=== PATIENT | female | born 1990 | race Caucasian/White ===

== ENCOUNTER 2017-10-14 10:16 | Inpatient (IN) | payer OTHER ==
[2017-10-14] MEDS: BETAMET NA PHOS/AC(6 MG/ML) 5ML INJ IM (13:13)
[2017-10-14 13:42] LABS: ADD MAN DIFF? NO
[2017-10-14 13:44] LABS: BASOPHILS % 0.4 % (0.0-2.0); EOSINOPHILS # 0.3 10^3/ul (0.0-0.5); EOSINOPHILS % 2.9 % (0.0-7.0); HEMATOCRIT 33.1 % (37.0-47.0); HEMOGLOBIN 11.5 g/dl (12.0-16.0); LYMPHOCYTES % 20.8 % (15.0-51.0); MEAN CORPUSCULAR HEMOGLOBIN 32.3 pg (29.0-33.0); MEAN CORPUSCULAR HGB CONC 34.7 g/dl (32.0-37.0); MONOCYTE # 0.8 10^3/ul (0.3-0.9); MONOCYTES % 7.9 % (0.0-11.0); NEUTROPHIL # 6.5 10^3/ul (1.6-7.5); NEUTROPHILS % 67.4 % (39.0-77.0); PLATELET COUNT 160 10^3/UL (140-415); RED BLOOD COUNT 3.56 10^6/ul (4.20-5.40)
[2017-10-14 13:44] LABS: WHITE BLOOD COUNT 9.6 10^3/ul (4.8-10.8)
[2017-10-14] MEDS ORDERED: NACL 0.9% 3 ML SYG IV (15:30)
== END 2017-10-14 19:45 | disposition home or self-care (01) | DRG 780 ==
LOC: OBT 10:16 → L-D 10:17 → OBT 15:39 → L-D 15:39 → PP1 15:50
PROVIDERS: Obstetrics & Gynecology
DX: O47.02 False labor before 37 completed weeks of gestation, second trimester (principal); Z3A.26 26 weeks gestation of pregnancy
CPT/HCPCS: 36415; 76815; 76817; 82731; 85025; 85460; 86850; 86900; 86901

== ENCOUNTER 2017-10-15 13:13 | Outpatient (CLI) | payer OTHER ==
[2017-10-15] MEDS: BETAMET NA PHOS/AC(6 MG/ML) 5ML INJ IM (13:49)
== END 2017-10-15 14:29 | disposition home or self-care (01) ==
LOC: OBT 13:13 → L-D 13:14 → OBT 14:29
DX: O26.892 Other specified pregnancy related conditions, second trimester (principal); Z3A.26 26 weeks gestation of pregnancy
CPT/HCPCS: 96372

== ENCOUNTER 2018-01-20 13:41 | Outpatient (CLI) | payer OTHER ==
[2018-01-20] MEDS ORDERED: CARBOPROST 250 MCG INJ IM (16:00)
[2018-01-20] MEDS ORDERED: MISOPROSTOL 200 MCG TAB PR (16:00)
[2018-01-20] MEDS ORDERED: BUTORPHANOL 1 MG INJ IV (16:00)
[2018-01-20] MEDS ORDERED: LACTATED RINGER'S 1,000 ML IV* (16:00)
[2018-01-20] MEDS ORDERED: BUTORPHANOL 2 MG INJ IV (16:00)
[2018-01-20] MEDS ORDERED: OXYTOCIN 30 UNITS/LR 500 ML IV ×2 (16:00)
[2018-01-20] MEDS ORDERED: LIDOCAINE 1% (MPF) 30 ML INJ INJ (16:00)
[2018-01-20] MEDS ORDERED: METHYLERGONOVINE 0.2 MG INJ IM (16:00)
== END 2018-01-20 16:10 | disposition home or self-care (01) ==
LOC: OBT 13:41 → L-D 13:41 → OBT 16:10
DX: O48.0 Post-term pregnancy (principal); Z3A.40 40 weeks gestation of pregnancy
CPT/HCPCS: 76815; 76818

== ENCOUNTER 2018-01-21 09:29 | Inpatient (IN) | payer OTHER ==
[2018-01-21] MEDS ORDERED: METHYLERGONOVINE 0.2 MG INJ IM (10:00)
[2018-01-21] MEDS ORDERED: OXYTOCIN 30 UNITS/LR 500 ML IV (10:00)
[2018-01-21] MEDS ORDERED: MISOPROSTOL 200 MCG TAB PR (10:00)
[2018-01-21] MEDS ORDERED: CARBOPROST 250 MCG INJ IM (10:00)
[2018-01-21] MEDS ORDERED: IBUPROFEN 600 MG TAB PO (10:00)
[2018-01-21] MEDS: LACTATED RINGER'S 1,000 ML IV* ×2 (11:14→20:44)
[2018-01-21] MEDS: AMPICILLIN 2 GM/NS (PMX) 100 ML IV (11:25)
[2018-01-21 11:43] LABS: ADD MAN DIFF? NO
[2018-01-21 11:46] LABS: BASOPHIL # 0.1 10^3/ul (0.0-0.1); BASOPHILS % 0.6 % (0.0-2.0); EOSINOPHILS # 0.2 10^3/ul (0.0-0.5); HEMATOCRIT 36.6 % (37.0-47.0); LYMPHOCYTES # 1.8 10^3/ul (0.8-2.9); LYMPHOCYTES % 21.4 % (15.0-51.0); MEAN CORPUSCULAR HEMOGLOBIN 29.6 pg (29.0-33.0); MEAN CORPUSCULAR HGB CONC 32.8 g/dl (32.0-37.0); MEAN CORPUSCULAR VOLUME 90.1 fl (82.0-101.0); MEAN PLATELET VOLUME 10.8 fl (7.4-10.4); MONOCYTE # 0.6 10^3/ul (0.3-0.9); MONOCYTES % 6.9 % (0.0-11.0); NEUTROPHIL # 5.7 10^3/ul (1.6-7.5); NEUTROPHILS % 67.9 % (39.0-77.0); PLATELET COUNT 180 10^3/UL (140-415); RED BLOOD COUNT 4.06 10^6/ul (4.20-5.40); RED CELL DISTRIBUTION WIDTH 14.4 % (11.5-14.5)
[2018-01-21 11:46] LABS: WHITE BLOOD COUNT 8.3 10^3/ul (4.8-10.8)
[2018-01-21] MEDS: DINOPROSTONE 10 MG VAG SUPP VAG (12:21)
[2018-01-21 12:23] LABS: INR 0.97
[2018-01-21 12:24] LABS: PARTIAL THROMBOPLASTIN TIME 26.6 Sec (25.0-35.0)
[2018-01-21 12:37] LABS: HEPATITIS B SURFACE ANTIGEN NEGATIVE (NEGATIVE)
[2018-01-21] MEDS: AMPICILLIN 1 GM/NS (PMX) 50 ML IV ×3 (15:31→23:18)
[2018-01-21 21:35] LABS: RAPID PLASMA REAGIN NONREACTIVE (NR)
[2018-01-21 21:52] LABS: ADD UMIC YES; UR ASCORBIC ACID NEGATIVE (NEGATIVE); UR BACTERIA FEW /HPF (NONE SEEN); UR BILIRUBIN (Dip) NEGATIVE (NEGATIVE); UR BLOOD (Dip) NEGATIVE (NEGATIVE); UR CLARITY CLEAR (CLEAR); UR COLOR YELLOW (YELLOW); UR GLUCOSE (Dip) NEGATIVE (NEGATIVE); UR KETONES (Dip) TRACE mg/dL (NEGATIVE); UR LEUKOCYTE ESTERASE (Dip) TRACE Leu/ul (NEGATIVE); UR NITRITE (Dip) NEGATIVE (NEGATIVE); UR RBC 0 /HPF (0-5); UR SPECIFIC GRAVITY (Dip) 1.015 (1.003-1.030); UR SQUAMOUS EPITHELIAL CELL FEW /HPF (FEW); UR TOTAL PROTEIN (Dip) NEGATIVE (NEGATIVE); UR UROBILINOGEN (Dip) 2+ mg/dL (NEGATIVE); UR WBC 1 /HPF (0-5)
[2018-01-21] MEDS: BUTORPHANOL 2 MG INJ IV (22:25)
[2018-01-22] MEDS: IBUPROFEN 600 MG TAB PO ×4 (00:37→17:41)
[2018-01-22] MEDS: OXYTOCIN 30 UNITS/LR 500 ML IV ×2 (00:41→00:42)
[2018-01-22] MEDS: MINERAL OIL LIGHT 10 ML VIAL TOP (00:55)
[2018-01-22] MEDS: LIDOCAINE 1% (MPF) 30 ML INJ INJ (00:55)
[2018-01-22] MEDS ORDERED: DEXTROSE 5%-LR 1,000 ML IV (01:38)
[2018-01-22] MEDS ORDERED: DIPHENHYDRAMINE 50 MG INJ IV (02:00)
[2018-01-22] MEDS ORDERED: SENNA/DOCUSATE NA (8.6MG/50MG) TAB PO (02:00)
[2018-01-22] MEDS ORDERED: MISOPROSTOL 200 MCG TAB PR (02:00)
[2018-01-22] MEDS ORDERED: OXYCODONE/ASPIRIN (4.88/325) TAB PO (02:00)
[2018-01-22] MEDS ORDERED: CARBOPROST 250 MCG INJ IM (02:00)
[2018-01-22] MEDS ORDERED: DIBUCAINE 1% 30 GM OINT PR (02:00)
[2018-01-22] MEDS ORDERED: METHYLERGONOVINE 0.2 MG INJ IM (02:00)
[2018-01-22] MEDS ORDERED: ONDANSETRON 4 MG INJ IV (02:00)
[2018-01-22] MEDS ORDERED: OXYTOCIN 30 UNITS/LR 500 ML IV (02:00)
[2018-01-22] MEDS ORDERED: ZOLPIDEM 5 MG TAB PO (02:00)
[2018-01-22] MEDS ORDERED: ACETAMINOPHEN 325 MG TAB PO (02:00)
[2018-01-22] MEDS: BENZOCAINE 20% 56 ML SPRAY TOP (05:38)
[2018-01-22] MEDS: LACTATED RINGER'S 1,000 ML IV* ×3 (05:38→17:38)
[2018-01-22] MEDS: LANOLIN 7 GM TUBE TOP (05:38)
[2018-01-22] MEDS: WITCH HAZEL/GLYCERIN PAD PR (05:39)
[2018-01-22] MEDS: CEPHALEXIN 500 MG CAP PO (18:58)
[2018-01-23] MEDS: IBUPROFEN 600 MG TAB PO ×4 (00:01→18:06)
[2018-01-23] MEDS: CEPHALEXIN 500 MG CAP PO ×4 (00:01→18:06)
[2018-01-23 10:27] LABS: ADD MAN DIFF? NO
[2018-01-23 10:35] LABS: BASOPHIL # 0.1 10^3/ul (0.0-0.1); BASOPHILS % 0.7 % (0.0-2.0); EOSINOPHILS # 0.3 10^3/ul (0.0-0.5); EOSINOPHILS % 3.4 % (0.0-7.0); HEMATOCRIT 33.4 % (37.0-47.0); HEMOGLOBIN 10.7 g/dl (12.0-16.0); LYMPHOCYTES % 27.8 % (15.0-51.0); MEAN CORPUSCULAR HEMOGLOBIN 29.4 pg (29.0-33.0); MEAN CORPUSCULAR VOLUME 91.8 fl (82.0-101.0); MEAN PLATELET VOLUME 11.4 fl (7.4-10.4); MONOCYTE # 0.5 10^3/ul (0.3-0.9); MONOCYTES % 6.8 % (0.0-11.0); NEUTROPHIL # 4.4 10^3/ul (1.6-7.5); NEUTROPHILS % 60.3 % (39.0-77.0); PLATELET COUNT 159 10^3/UL (140-415); RED BLOOD COUNT 3.64 10^6/ul (4.20-5.40); RED CELL DISTRIBUTION WIDTH 14.8 % (11.5-14.5)
[2018-01-23 10:35] LABS: WHITE BLOOD COUNT 7.3 10^3/ul (4.8-10.8)
[2018-01-24] MEDS ORDERED: DIPHTH/TET/ACEL PERTUSS (ADULT) 0.5 ML VIAL IM* (09:00)
[2018-01-24] MEDS ORDERED: MEASLES,MUMPS,RUBELLA VACCINE INJ SC* (09:00)
== END 2018-01-23 18:41 | disposition home or self-care (01) | DRG 775 ==
LOC: L-D 09:29 → PP1 01-22 02:09
PROVIDERS: Obstetrics & Gynecology
PROC: 10E0XZZ Delivery of Products of Conception, External Approach (ICD-10-PCS; principal; 2018-01-22)
PROC: 0HQ9XZZ Repair Perineum Skin, External Approach (ICD-10-PCS; 2018-01-22)
DX: O48.0 Post-term pregnancy (principal); O70.0 First degree perineal laceration during delivery; O99.824 Streptococcus B carrier state complicating childbirth; Z3A.40 40 weeks gestation of pregnancy; Z37.0 Single live birth
CPT/HCPCS: 81001; 85025; 85610; 85730; 86592; 86850; 86900; 86901; 87086; 87340; 99464